=== PATIENT | male | born 1960 | race Hispanic/Latino ===

== ENCOUNTER 2016-10-16 01:41 | Emergency (ER) | payer OTHER ==
[2016-10-16] MEDS ORDERED: Mag-Al Plus 1200 MG/1200 MG/120 MG/30 ML UDCUP ONE (02:01)
[2016-10-16] MEDS ORDERED: Lidocaine Viscous Sol 2% 15 ml UD Cup ONE (02:01)
[2016-10-16 02:04] LABS: #Basophils 0.1 thou/uL (0.0-0.2); #Eosinphils 0.3 thou/uL (0.0-0.7); #Lymphocytes 2.5 thou/uL (1.20-3.40); #Monocytes 0.7 thou/uL (0.11-0.59); #Neutrophils 4.5 thou/uL (1.40-6.50); %Basophils 1.1 % (0.0-1.0); %Monocytes 8.5 % (0.0-10.0); %Neutrophils 55.4 % (42.0-75.0); Hemoglobin 13.6 g/dL (14.0-18.0); Mean Corpuscular HGB CONC 33.3 g/dL (32.0-36.0); Mean Corpuscular Hemoglobin 29.9 pg (27.0-31.0); Mean Platelet Volume 6.5 fL (7.4-10.4); Platelet Count 207 thou/uL (130-400); RBC Distribution Width 10.7 % (11.5-14.5); Red Blood Cell (RBC) Count 4.53 mill/uL (4.70-6.10); White Blood Cell (WBC) Count 8.1 thou/uL (4.8-10.8)
[2016-10-16 02:25] LABS: CKMB 2.3 ng/mL (0-6.6); Troponin I Less than 0.010 ng/mL (< 0.028)
[2016-10-16 02:25] LABS: Bacteria/HPF None Seen HPF (None Seen); Bilirubin Negative (Negative); Blood, Urine Trace (Negative); Clarity Clear (Clear); Glucose, Urine (Dipstick) Negative (Negative); Leukocyte Negative (Negative); Nitrite Negative (Negative); Protein, Urine (Dipstick) Negative (Neg-Trace); RBC/HPF 0-3 HPF (0-3); Specific Gravity, Urine 1.025 (1.005-1.030); Squamous Epithelial 0-3 HPF (0-3); WBC/HPF None Seen HPF (0-3)
[2016-10-16] MEDS ORDERED: Pantoprazole 40 MG VIAL ONE (02:25)
[2016-10-16 02:27] LABS: ALT (SGPT) 55 U/L (8-55); AST (SGOT) 39 U/L (5-34); Albumin 4.1 g/dL (3.5-5.0); Alkaline Phosphatase 140 U/L (40-150); Anion Gap 12 mmol/L (10-20); BUN (Urea Nitrogen) 16 mg/dL (8.4-25.7); Bilirubin, Total 0.5 mg/dL (0.2-1.2); CK (CPK) 233 U/L (30-200); Calc. Creatinine Clearance 0 mL/min (70-130); Calcium 9.1 mg/dL (7.8-10.44); Carbon Dioxide 25 mmol/L (22-29); Chloride 107 mmol/L (98-107); Estimated GFR-MDRD 83; Glucose 161 mg/dL (70-105); Lipase 20 U/L (8-78); Potassium 3.4 mmol/L (3.5-5.1); Protein, Total 7.1 g/dL (6.0-8.3); Sodium 141 mmol/L (136-145)
== END 2016-10-16 02:50 | disposition home or self-care (01) ==
LOC: NAV ERS 01:41
DX: R10.13 Epigastric pain (principal); K29.70 Gastritis, unspecified, without bleeding; Z87.442 Personal history of urinary calculi
CPT/HCPCS: 36415; 80053; 81003; 81015; 82553; 83690; 84484; 85025; 93005; 96374; 96375; C9113; J2270

== ENCOUNTER 2017-06-09 14:17 | Emergency (ER) | payer OTHER ==
[2017-06-09] MEDS ORDERED: Dexamethasone 20 MG/5 ML VIAL ONE (14:42)
[2017-06-09] MEDS ORDERED: Ibuprofen 800 MG TAB ONE (14:42)
== END 2017-06-09 15:07 | disposition home or self-care (01) ==
LOC: NAV ERS 14:17
DX: J20.9 Acute bronchitis, unspecified (principal); M54.9 Dorsalgia, unspecified
CPT/HCPCS: 96372; J1100

== ENCOUNTER 2017-09-27 06:17 | Emergency (ER) | payer OTHER ==
[2017-09-27 07:10] LABS: Band 12 % (5-11); Eosinophils 4 % (0-10); Hemoglobin 13.9 g/dL (14.0-18.0); Lymphocytes 23 % (21-51); MDiff Complete? YES; Mean Corpuscular HGB CONC 33.7 g/dL (32.0-36.0); Mean Corpuscular Hemoglobin 28.6 pg (27.0-31.0); Mean Corpuscular Volume 84.8 fL (78.0-98.0); Mean Platelet Volume 7.1 fL (7.4-10.4); Monocytes 5 % (0-10); Neutrophil 56 % (42-75); PLT Morphology Comment Appears Adequate; Platelet Count 200 thou/uL (130-400); RBC Distribution Width 10.1 % (11.5-14.5); RBC Morphology Normal; Red Blood Cell (RBC) Count 4.88 mill/uL (4.70-6.10); White Blood Cell (WBC) Count 6.5 thou/uL (4.8-10.8)
[2017-09-27 07:11] LABS: Anion Gap 14 mmol/L (10-20); BUN (Urea Nitrogen) 13 mg/dL (8.4-25.7); Bilirubin, Total 0.6 mg/dL (0.2-1.2); Calc. Creatinine Clearance 0 mL/min (70-130); Calcium 9.1 mg/dL (7.8-10.44); Carbon Dioxide 24 mmol/L (22-29); Chloride 101 mmol/L (98-107); Estimated GFR-MDRD 89; Glucose 296 mg/dL (70-105); Potassium 3.7 mmol/L (3.5-5.1); Protein, Total 6.6 g/dL (6.0-8.3); Sodium 135 mmol/L (136-145)
[2017-09-27 07:12] LABS: ALT (SGPT) 71 U/L (8-55); AST (SGOT) 39 U/L (5-34); Alkaline Phosphatase 132 U/L (40-150); CKMB 0.8 ng/mL (0-6.6); Globulin 2.6 g/dL (2.4-3.5); Troponin I Less than 0.010 ng/mL (< 0.028)
[2017-09-27] MEDS ORDERED: Sodium Chloride 0.9% 1,000 ML ONE (07:29)
[2017-09-27] MEDS ORDERED: Insulin Regular 300 UNITS/3 ML VIAL ONE (08:43)
== END 2017-09-27 10:33 | disposition home or self-care (01) ==
LOC: NAV ERS 06:17
DX: R73.9 Hyperglycemia, unspecified (principal); H81.393 Other peripheral vertigo, bilateral; Z87.442 Personal history of urinary calculi; Z79.899 Other long term (current) drug therapy
CPT/HCPCS: 36416; 80053; 82553; 84484; 85025; 93005; 96361; 96374; J1815; J7050

== ENCOUNTER 2020-08-31 20:06 | Emergency (ER) | payer SELFPAY ==
[2020-08-31 20:58] LABS: #Basophils 0.1 thou/uL (0.0-0.2); #Lymphocytes 1.2 thou/uL (1.20-3.40); #Monocytes 0.5 thou/uL (0.11-0.59); #Neutrophils 9.5 thou/uL (1.40-6.50); %Basophils 0.6 % (0.0-1.0); %Eosinophils 0.4 % (0.0-10.0); %Lymphocytes 10.8 % (21.0-51.0); %Monocytes 4.5 % (0.0-10.0); %Neutrophils 83.7 % (42.0-75.0); Hemoglobin 13.5 g/dL (14.0-18.0); Mean Corpuscular HGB CONC 33.4 g/dL (32.0-36.0); Mean Corpuscular Volume 92.8 fL (78.0-98.0); Platelet Count 187 thou/uL (130-400); RBC Distribution Width 10.4 % (11.5-14.5); Red Blood Cell (RBC) Count 4.37 mill/uL (4.70-6.10); White Blood Cell (WBC) Count 11.4 thou/uL (4.8-10.8)
[2020-08-31] MEDS ORDERED: Ketorolac Tromethamine 30 MG/ML VIAL ONE (21:02)
[2020-08-31] MEDS ORDERED: Ondansetron ODT 4 MG TAB ONE (21:02)
[2020-08-31] MEDS ORDERED: Acetaminophen 500 MG TAB ONE (21:02)
[2020-08-31 21:18] LABS: ALT (SGPT) 17 U/L (8-55); AST (SGOT) 15 U/L (5-34); Alkaline Phosphatase 104 U/L (40-110); Anion Gap 15 mmol/L (10-20); BUN (Urea Nitrogen) 16 mg/dL (8.4-25.7); Bilirubin, Total 0.6 mg/dL (0.2-1.2); Calc. Creatinine Clearance 0 mL/min (70-130); Calcium 8.9 mg/dL (7.8-10.44); Carbon Dioxide 23 mmol/L (22-29); Chloride 103 mmol/L (98-107); Globulin 2.9 g/dL (2.4-3.5); Glucose 171 mg/dL (70-105); Potassium 3.8 mmol/L (3.5-5.1); Protein, Total 6.9 g/dL (6.0-8.3); Sodium 137 mmol/L (136-145)
[2020-08-31] MEDS ORDERED: Morphine 4 MG/ML VIAL ONE (21:45)
[2020-08-31] MEDS ORDERED: Dexamethasone 4 mg/ml Vial ONE (21:46)
== END 2020-08-31 23:59 | disposition short-term general hospital (02) ==
LOC: NAV ERS 20:06
DX: G93.9 Disorder of brain, unspecified (principal)
CPT/HCPCS: 70450; 80053; 85025; 93005; 96374; 96375; J1100; J1885; J2270; Q0162

== ENCOUNTER 2020-09-30 04:05 | Emergency (ER) | payer MEDICAID, SELFPAY ==
[2020-09-30] MEDS ORDERED: Cephalexin 250 MG CAP ONE (04:30)
[2020-09-30] MEDS ORDERED: Sulfameth/Trimethoprim DS 800-160mg TAB ONE (04:30)
[2020-09-30] MEDS ORDERED: cefTRIAXone\\ROCEPHIN 1 GM VIAL ONE (04:37)
[2020-09-30] MEDS ORDERED: Sodium Chloride 0.9% 100 ML ONE (04:37)
[2020-09-30] MEDS ORDERED: Sodium Chloride 0.9% 1,000 ML ONE (04:37)
[2020-09-30 05:00] LABS: #Basophils 0.1 thou/uL (0.0-0.2); #Lymphocytes 0.8 thou/uL (1.20-3.40); #Monocytes 0.5 thou/uL (0.11-0.59); %Basophils 0.6 % (0.0-1.0); %Eosinophils 0.4 % (0.0-10.0); %Lymphocytes 7.4 % (21.0-51.0); %Monocytes 4.6 % (0.0-10.0); Hemoglobin 12.7 g/dL (14.0-18.0); Mean Corpuscular HGB CONC 33.9 g/dL (32.0-36.0); Mean Corpuscular Hemoglobin 30.5 pg (27.0-31.0); Mean Corpuscular Volume 89.9 fL (78.0-98.0); Mean Platelet Volume 6.1 fL (7.4-10.4); Platelet Count 114 thou/uL (130-400); Platelet Morphology Comment Appears Decreased; RBC Distribution Width 9.7 % (11.5-14.5); Red Blood Cell (RBC) Count 4.15 mill/uL (4.70-6.10); White Blood Cell (WBC) Count 10.3 thou/uL (4.8-10.8)
[2020-09-30 05:04] LABS: ALT (SGPT) 37 U/L (8-55); AST (SGOT) 18 U/L (5-34); Albumin 3.3 g/dL (3.5-5.0); Alkaline Phosphatase 171 U/L (40-110); Anion Gap 13 mmol/L (10-20); BUN (Urea Nitrogen) 17 mg/dL (8.4-25.7); Bilirubin, Total 1.3 mg/dL (0.2-1.2); Calc. Creatinine Clearance 0 mL/min (70-130); Calcium 8.5 mg/dL (7.8-10.44); Carbon Dioxide 25 mmol/L (22-29); Chloride 97 mmol/L (98-107); Globulin 2.5 g/dL (2.4-3.5); Glucose 414 mg/dL (70-105); Potassium 3.8 mmol/L (3.5-5.1); Protein, Total 5.8 g/dL (6.0-8.3); Sodium 131 mmol/L (136-145)
== END 2020-09-30 05:26 | disposition home or self-care (01) ==
LOC: NAV ERS 04:05
DX: L03.011 Cellulitis of right finger (principal)
CPT/HCPCS: 36415; 80053; 83605; 85025; 87040; 96365; J0696; J3490; J7050

== ENCOUNTER 2020-10-06 13:10 | Emergency (ER) | payer MEDICAID, SELFPAY ==
[~2020-10-06 13:10] MED LIST: Iopamidol 370 76% 100 ML VIAL ONE
[2020-10-06 14:25] LABS: Hemoglobin 11.1 g/dL (14.0-18.0); Mean Corpuscular HGB CONC 35.2 g/dL (32.0-36.0); Mean Corpuscular Hemoglobin 31.9 pg (27.0-31.0); Mean Corpuscular Volume 90.6 fL (78.0-98.0); Mean Platelet Volume 5.6 fL (7.4-10.4); Platelet Count 152 thou/uL (130-400); RBC Distribution Width 10.7 % (11.5-14.5); Red Blood Cell (RBC) Count 3.48 mill/uL (4.70-6.10); White Blood Cell (WBC) Count 4.6 thou/uL (4.8-10.8)
[2020-10-06 14:27] LABS: ALT (SGPT) 32 U/L (8-55); AST (SGOT) 32 U/L (5-34); Alkaline Phosphatase 128 U/L (40-110); Anion Gap 13 mmol/L (10-20); BUN (Urea Nitrogen) 15 mg/dL (8.4-25.7); Bilirubin, Total 1.2 mg/dL (0.2-1.2); Calc. Creatinine Clearance 0 mL/min (70-130); Calcium 8.2 mg/dL (7.8-10.44); Carbon Dioxide 24 mmol/L (22-29); Chloride 96 mmol/L (98-107); Globulin 2.9 g/dL (2.4-3.5); Glucose 416 mg/dL (70-105); Lipase 24 U/L (8-78); Magnesium 1.7 mg/dL (1.6-2.6); Potassium 3.6 mmol/L (3.5-5.1); Protein, Total 5.9 g/dL (6.0-8.3); Sodium 129 mmol/L (136-145)
[2020-10-06 14:39] LABS: Lymphocytes 12 % (21-51); MDiff Complete? YES; Monocytes 5 % (0-10); Neutrophil 80 % (42-75)
[2020-10-06 14:40] LABS: Eosinophils 3 % (0-10); Platelet Morphology Comment ADEQUATE
[2020-10-06 16:31] LABS: Bilirubin Negative (Negative); Blood, Urine Negative (Negative); Clarity Slightly Cloudy (Clear); Glucose, Urine (Dipstick) 500 mg/dL (Negative); Ketone, Urine 40 mg/dL (Negative); Leukocyte Negative (Negative); Nitrite Negative (Negative); Protein, Urine (Dipstick) Negative (Neg-Trace); Specific Gravity, Urine 1.015 (1.005-1.030)
[2020-10-06] MEDS ORDERED: Dexamethasone 4 mg/ml Vial ONE (21:55)
[2020-10-06] MEDS ORDERED: Sodium Chloride 0.9% 1,000 ML ONE (21:56)
[2020-10-07 07:53] LABS: #Lymphocytes 0.5 thou/uL (1.20-3.40); #Monocytes 0.2 thou/uL (0.11-0.59); #Neutrophils 4.1 thou/uL (1.40-6.50); %Basophils 0.4 % (0.0-1.0); %Lymphocytes 10.6 % (21.0-51.0); %Monocytes 4.6 % (0.0-10.0); %Neutrophils 84.4 % (42.0-75.0); Hemoglobin 10.7 g/dL (14.0-18.0); Mean Corpuscular HGB CONC 34.6 g/dL (32.0-36.0); Mean Corpuscular Hemoglobin 31.2 pg (27.0-31.0); Mean Corpuscular Volume 90.2 fL (78.0-98.0); Mean Platelet Volume 5.3 fL (7.4-10.4); Platelet Count 149 thou/uL (130-400); RBC Distribution Width 10.2 % (11.5-14.5); Red Blood Cell (RBC) Count 3.43 mill/uL (4.70-6.10); White Blood Cell (WBC) Count 4.8 thou/uL (4.8-10.8)
[2020-10-07 08:11] LABS: ALT (SGPT) 31 U/L (8-55); AST (SGOT) 32 U/L (5-34); Albumin 2.8 g/dL (3.5-5.0); Alkaline Phosphatase 108 U/L (40-110); Anion Gap 13 mmol/L (10-20); BUN (Urea Nitrogen) 11 mg/dL (8.4-25.7); Bilirubin, Total 1.1 mg/dL (0.2-1.2); Calc. Creatinine Clearance 0 mL/min (70-130); Calcium 8.3 mg/dL (7.8-10.44); Carbon Dioxide 22 mmol/L (22-29); Chloride 101 mmol/L (98-107); Globulin 2.9 g/dL (2.4-3.5); Glucose 253 mg/dL (70-105); Potassium 3.9 mmol/L (3.5-5.1); Protein, Total 5.7 g/dL (6.0-8.3); Sodium 132 mmol/L (136-145)
[2020-10-07] MEDS ORDERED: Sodium Chloride 0.9% 1,000 ML ONE (09:37)
== END 2020-10-07 18:16 | disposition short-term general hospital (02) ==
LOC: NAV ERS 13:10
DX: U07.1 COVID-19 (principal); J12.82 Pneumonia due to coronavirus disease 2019; E11.65 Type 2 diabetes mellitus with hyperglycemia
CPT/HCPCS: 36416; 71045; 71275; 80053; 81003; 83605; 83690; 83735; 83880; 84484; 85025; 85379; 93005; 94760; 96374; J1100; J7050; Q9967

== ENCOUNTER 2020-10-14 14:05 | Emergency (ER) | payer MEDICAID, SELFPAY ==
[~2020-10-14 14:05] MED LIST changes: +Enoxaparin Sodium 40 MG/0.4 ML SYRINGE ONE
[2020-10-14 15:18] LABS: #Basophils 0.1 thou/uL (0.0-0.2); #Lymphocytes 0.6 thou/uL (1.20-3.40); #Monocytes 0.4 thou/uL (0.11-0.59); #Neutrophils 4.3 thou/uL (1.40-6.50); %Basophils 1.7 % (0.0-1.0); %Eosinophils 0.2 % (0.0-10.0); %Lymphocytes 11.3 % (21.0-51.0); %Neutrophils 79.8 % (42.0-75.0); Hemoglobin 9.3 g/dL (14.0-18.0); Mean Corpuscular Hemoglobin 30.3 pg (27.0-31.0); Mean Corpuscular Volume 91.8 fL (78.0-98.0); Mean Platelet Volume 5.4 fL (7.4-10.4); Platelet Count 300 thou/uL (130-400); RBC Distribution Width 12.1 % (11.5-14.5); Red Blood Cell (RBC) Count 3.06 mill/uL (4.70-6.10); White Blood Cell (WBC) Count 5.4 thou/uL (4.8-10.8)
[2020-10-14] MEDS ORDERED: Sodium Chloride 0.9% 1,000 ML ONE ×2 (15:24→16:53)
[2020-10-14 15:27] LABS: ALT (SGPT) 26 U/L (8-55); AST (SGOT) 20 U/L (5-34); Albumin 2.9 g/dL (3.5-5.0); Alkaline Phosphatase 109 U/L (40-110); Anion Gap 14 mmol/L (10-20); BUN (Urea Nitrogen) 13 mg/dL (8.4-25.7); Bilirubin, Total 0.9 mg/dL (0.2-1.2); Calc. Creatinine Clearance 0 mL/min (70-130); Calcium 8.5 mg/dL (7.8-10.44); Carbon Dioxide 21 mmol/L (22-29); Chloride 98 mmol/L (98-107); Globulin 3.5 g/dL (2.4-3.5); Glucose 285 mg/dL (70-105); Potassium 3.9 mmol/L (3.5-5.1); Protein, Total 6.4 g/dL (6.0-8.3); Sodium 129 mmol/L (136-145)
[2020-10-14] MEDS ORDERED: Dexamethasone 4 mg/ml Vial ONE (16:53)
[2020-10-15 07:15] LABS: Anion Gap 13 mmol/L (10-20); BUN (Urea Nitrogen) 12 mg/dL (8.4-25.7); Calc. Creatinine Clearance 0 mL/min (70-130); Carbon Dioxide 22 mmol/L (22-29); Chloride 105 mmol/L (98-107); Glucose 288 mg/dL (70-105); Potassium 4.4 mmol/L (3.5-5.1); Sodium 136 mmol/L (136-145)
[2020-10-15 07:18] LABS: #Lymphocytes 0.5 thou/uL (1.20-3.40); #Monocytes 0.2 thou/uL (0.11-0.59); #Neutrophils 3.2 thou/uL (1.40-6.50); %Basophils 0.4 % (0.0-1.0); %Lymphocytes 13.7 % (21.0-51.0); %Monocytes 5.4 % (0.0-10.0); %Neutrophils 80.5 % (42.0-75.0); Hemoglobin 9.3 g/dL (14.0-18.0); Mean Corpuscular HGB CONC 33.5 g/dL (32.0-36.0); Mean Corpuscular Hemoglobin 30.7 pg (27.0-31.0); Mean Corpuscular Volume 91.8 fL (78.0-98.0); Mean Platelet Volume 5.6 fL (7.4-10.4); Platelet Count 299 thou/uL (130-400); RBC Distribution Width 12.2 % (11.5-14.5); Red Blood Cell (RBC) Count 3.01 mill/uL (4.70-6.10); White Blood Cell (WBC) Count 3.9 thou/uL (4.8-10.8)
== END 2020-10-15 13:09 | disposition short-term general hospital (02) ==
LOC: NAV ERS 14:05
DX: U07.1 COVID-19 (principal); J12.82 Pneumonia due to coronavirus disease 2019; E11.65 Type 2 diabetes mellitus with hyperglycemia; E87.1 Hypo-osmolality and hyponatremia
CPT/HCPCS: 36415; 36416; 71045; 71275; 80048; 80053; 83605; 83880; 84484; 85025; 93005; 94760; 96372; 96374; J1100; J1650; J7050; Q9967

== ENCOUNTER 2021-03-01 15:30 | Emergency (ER) | payer MEDICAID ==
[2021-03-01] MEDS ORDERED: Sodium Chloride 0.9% 1,000 ML ONE (16:20)
[2021-03-01 16:50] LABS: #Basophils 0.1 thou/uL (0.0-0.2); #Lymphocytes 0.9 thou/uL (1.20-3.40); #Monocytes 0.6 thou/uL (0.11-0.59); #Neutrophils 7.2 thou/uL (1.40-6.50); %Basophils 1.3 % (0.0-1.0); %Eosinophils 0.3 % (0.0-10.0); %Lymphocytes 10.6 % (21.0-51.0); %Monocytes 6.4 % (0.0-10.0); %Neutrophils 81.4 % (42.0-75.0); Hemoglobin 13.9 g/dL (14.0-18.0); Mean Corpuscular HGB CONC 33.4 g/dL (32.0-36.0); Mean Corpuscular Hemoglobin 30.4 pg (27.0-31.0); Mean Corpuscular Volume 91.1 fL (78.0-98.0); Mean Platelet Volume 6.8 fL (7.4-10.4); Platelet Count 197 thou/uL (130-400); Red Blood Cell (RBC) Count 4.58 mill/uL (4.70-6.10); White Blood Cell (WBC) Count 8.9 thou/uL (4.8-10.8)
[2021-03-01 16:51] LABS: ALT (SGPT) 12 U/L (8-55); AST (SGOT) 14 U/L (5-34); Albumin 4.1 g/dL (3.5-5.0); Alkaline Phosphatase 114 U/L (40-110); Anion Gap 14 mmol/L (10-20); BUN (Urea Nitrogen) 12 mg/dL (8.4-25.7); Bilirubin, Total 0.4 mg/dL (0.2-1.2); Calc. Creatinine Clearance 0 mL/min (70-130); Calcium 8.9 mg/dL (7.8-10.44); Carbon Dioxide 23 mmol/L (22-29); Chloride 104 mmol/L (98-107); Globulin 2.8 g/dL (2.4-3.5); Glucose 162 mg/dL (70-105); Potassium 3.8 mmol/L (3.5-5.1); Protein, Total 6.9 g/dL (6.0-8.3); Sodium 137 mmol/L (136-145)
[2021-03-01] MEDS ORDERED: Ibuprofen 200 MG TAB ONE (17:36)
== END 2021-03-01 17:50 | disposition home or self-care (01) ==
LOC: NAV ERS 15:30
DX: C79.31 Secondary malignant neoplasm of brain (principal); Z86.16 Personal history of COVID-19; E11.9 Type 2 diabetes mellitus without complications
CPT/HCPCS: 80053; 85025; 99284; J7050

== ENCOUNTER 2021-10-23 19:33 | Emergency (ER) | payer SELFPAY ==
[2021-10-23] MEDS ORDERED: Mag-Al Plus 1200 MG/1200 MG/120 MG/30 ML UDCUP ONE (20:03)
[2021-10-23] MEDS ORDERED: Famotidine/PF 20 mg/2ml Vial ONE (20:03)
[2021-10-23] MEDS ORDERED: Ondansetron PF 4 MG/2 ML Vial ONE (20:03)
[2021-10-23] MEDS ORDERED: Lidocaine Viscous Sol 2% 15 ml UD Cup ONE (20:03)
[2021-10-23 20:16] LABS: #Basophils 0.1 thou/uL (0.0-0.2); #Eosinphils 0.9 thou/uL (0.0-0.7); #Lymphocytes 1.1 thou/uL (1.20-3.40); #Monocytes 0.6 thou/uL (0.11-0.59); #Neutrophils 8.2 thou/uL (1.40-6.50); %Basophils 0.5 % (0.0-1.0); %Lymphocytes 9.9 % (21.0-51.0); %Monocytes 5.4 % (0.0-10.0); %Neutrophils 76.1 % (42.0-75.0); Hemoglobin 12.4 g/dL (14.0-18.0); Mean Corpuscular HGB CONC 32.6 g/dL (32.0-36.0); Mean Corpuscular Hemoglobin 30.8 pg (27.0-31.0); Mean Corpuscular Volume 94.6 fL (78.0-98.0); Mean Platelet Volume 5.9 fL (7.4-10.4); Platelet Count 232 thou/uL (130-400); RBC Distribution Width 11.1 % (11.5-14.5); Red Blood Cell (RBC) Count 4.02 mill/uL (4.70-6.10); White Blood Cell (WBC) Count 10.7 thou/uL (4.8-10.8)
[2021-10-23 20:35] LABS: ALT (SGPT) 15 U/L (8-55); AST (SGOT) 16 U/L (5-34); Albumin 4.2 g/dL (3.5-5.0); Alkaline Phosphatase 124 U/L (40-110); Anion Gap 14 mmol/L (10-20); BUN (Urea Nitrogen) 11 mg/dL (8.4-25.7); Bilirubin, Total 0.5 mg/dL (0.2-1.2); Calc. Creatinine Clearance 0 mL/min (70-130); Calcium 8.9 mg/dL (7.8-10.44); Carbon Dioxide 26 mmol/L (22-29); Chloride 102 mmol/L (98-107); Estimated GFR 107; Globulin 2.1 g/dL (2.4-3.5); Glucose 123 mg/dL (70-105); Lipase 14 U/L (8-78); Protein, Total 6.3 g/dL (6.0-8.3); Sodium 138 mmol/L (136-145)
== END 2021-10-23 21:34 | disposition home or self-care (01) ==
LOC: NAV ERS 19:33
DX: K29.70 Gastritis, unspecified, without bleeding (principal); E11.9 Type 2 diabetes mellitus without complications; Z79.84 Long term (current) use of oral hypoglycemic drugs
CPT/HCPCS: 71045; 80053; 83690; 84484; 85025; 93005; 96374; 96375; J2405; S0028

== ENCOUNTER 2022-01-29 12:09 | Emergency (ER) | payer SELFPAY ==
[2022-01-29 13:09] LABS: #Eosinphils 0.1 thou/uL (0.0-0.7); #Lymphocytes 1.2 thou/uL (1.20-3.40); #Monocytes 0.4 thou/uL (0.11-0.59); #Neutrophils 4.9 thou/uL (1.40-6.50); %Basophils 0.5 % (0.0-1.0); %Eosinophils 1.7 % (0.0-10.0); %Lymphocytes 17.5 % (21.0-51.0); %Monocytes 5.6 % (0.0-10.0); %Neutrophils 74.7 % (42.0-75.0); Mean Corpuscular HGB CONC 34.3 g/dL (32.0-36.0); Mean Corpuscular Hemoglobin 31.8 pg (27.0-31.0); Mean Corpuscular Volume 92.6 fl (78.0-98.0); Mean Platelet Volume 6.1 fL (7.4-10.4); Platelet Count 216 10x3/uL (130-400); RBC Distribution Width 10.6 % (11.5-14.5); Red Blood Cell (RBC) Count 4.41 mill/uL (4.70-6.10); White Blood Cell (WBC) Count 6.6 10x3/uL (4.8-10.8)
[2022-01-29] MEDS ORDERED: Sodium Chloride 0.9% 1,000 ML ONE (13:12)
[2022-01-29 13:24] LABS: ALT (SGPT) 12 U/L (8-55); AST (SGOT) 15 U/L (5-34); Albumin 4.3 g/dL (3.5-5.0); Alkaline Phosphatase 107 U/L (40-110); Anion Gap 14 mmol/L (10-20); BUN (Urea Nitrogen) 12 mg/dL (8.4-25.7); Bilirubin, Total 0.6 mg/dL (0.2-1.2); Calc. Creatinine Clearance 0 mL/min (70-130); Calcium 9.2 mg/dL (7.8-10.44); Carbon Dioxide 24 mmol/L (22-29); Chloride 104 mmol/L (98-107); Estimated GFR 104; Globulin 2.3 g/dL (2.4-3.5); Glucose 98 mg/dL (70-105); Potassium 3.9 mmol/L (3.5-5.1); Protein, Total 6.6 g/dL (6.0-8.3); Sodium 138 mmol/L (136-145)
[2022-01-29 14:22] LABS: Bilirubin Negative (Negative); Blood, Urine Negative (Negative); Clarity Clear (Clear); Glucose, Urine (Dipstick) Negative (Negative); Ketone, Urine Negative (Negative); Leukocyte Negative (Negative); Nitrite Negative (Negative); Protein, Urine (Dipstick) Negative (Neg-Trace); Specific Gravity, Urine 1.015 (1.005-1.030); Urobilinogen 0.2 mg/dL (Less than 2)
== END 2022-01-29 15:10 | disposition home or self-care (01) ==
LOC: NAV ERS 12:09
DX: R63.0 Anorexia (principal); R53.1 Weakness; E11.9 Type 2 diabetes mellitus without complications; Z85.118 Personal history of other malignant neoplasm of bronchus and lung
CPT/HCPCS: 72100; 72220; 80053; 81003; 85025; J7050

== ENCOUNTER 2022-04-22 03:01 | Emergency (ER) | payer SELFPAY ==
[2022-04-22] MEDS ORDERED: Ketorolac Tromethamine 60 MG/2 ML VIAL ONE (03:52)
== END 2022-04-22 05:25 | disposition home or self-care (01) ==
LOC: NAV ERS 03:01
DX: G89.18 Other acute postprocedural pain (principal); K08.89 Other specified disorders of teeth and supporting structures; E11.9 Type 2 diabetes mellitus without complications
CPT/HCPCS: 96372; 99283; J1885

== ENCOUNTER 2022-06-04 20:49 | Emergency (ER) | payer SELFPAY ==
[2022-06-04] MEDS ORDERED: Morphine 4 MG/ML VIAL ONE (21:40)
[2022-06-04 22:00] LABS: #Basophils 0.2 thou/uL (0.0-0.2); #Lymphocytes 1.3 thou/uL (1.20-3.40); #Monocytes 1.1 thou/uL (0.11-0.59); #Neutrophils 13.3 thou/uL (1.40-6.50); %Basophils 1.1 % (0.0-1.0); %Eosinophils 0.2 % (0.0-10.0); %Lymphocytes 8.2 % (21.0-51.0); %Monocytes 6.8 % (0.0-10.0); %Neutrophils 83.7 % (42.0-75.0); Hemoglobin 13.3 g/dL (14.0-18.0); Mean Corpuscular HGB CONC 34.1 g/dL (32.0-36.0); Mean Corpuscular Hemoglobin 32.3 pg (27.0-31.0); Mean Corpuscular Volume 94.8 fl (78.0-98.0); Mean Platelet Volume 5.2 fL (7.4-10.4); Platelet Count 218 10x3/uL (130-400); Red Blood Cell (RBC) Count 4.13 mill/uL (4.70-6.10); White Blood Cell (WBC) Count 15.9 10x3/uL (4.8-10.8)
[2022-06-04 22:12] LABS: Anion Gap 17 mmol/L (10-20); BUN (Urea Nitrogen) 20 mg/dL (8.4-25.7); CRP (Inflammatory) 11.49 mg/dL (= or < 0.5); Calc. Creatinine Clearance 0 mL/min (70-130); Calcium 8.9 mg/dL (7.8-10.44); Carbon Dioxide 24 mmol/L (22-29); Chloride 96 mmol/L (98-107); Estimated GFR 106; Glucose 149 mg/dL (70-105); Sodium 133 mmol/L (136-145)
[2022-06-04] MEDS ORDERED: Sodium Chloride 0.9% 100 ML ONE (22:59)
[2022-06-04] MEDS ORDERED: cefTRIAXone (ROCEPHIN) 2 GM VIAL ONE (22:59)
== END 2022-06-04 23:27 | disposition short-term general hospital (02) ==
LOC: NAV ERS 20:49
DX: T81.49XA Infection following a procedure, other surgical site, initial encounter (principal); C78.00 Secondary malignant neoplasm of unspecified lung; E11.9 Type 2 diabetes mellitus without complications
CPT/HCPCS: 80048; 85025; 86140; 96365; 96375; J0696; J2270; J3490

== ENCOUNTER 2022-08-19 11:17 | Outpatient (CLI) | payer OTHER | END 2022-08-19 11:18 | disposition home or self-care (01) | LOC: NAV CT 11:17 | PROVIDERS: ATTEND Surgery | DX: C79.31 Secondary malignant neoplasm of brain (principal); R51.9 Headache, unspecified; Z98.890 Other specified postprocedural states | CPT/HCPCS: 70450 ==